=== PATIENT | female | born 1990 | race African-American/Black ===

== ENCOUNTER 2017-01-22 10:33 | Emergency (ER) | payer OTHER ==
[~2017-01-22] VITALS: Ht 157.5 cm; Wt 56.8 kg
[~2017-01-22 10:33] MED LIST: NOCURR
[2017-01-22 11:18] LABS: BASOPHILS # (AUTO) 0.02 K/uL (0.00-0.20); BASOPHILS % (AUTO) 0.3 % (0.0-2.0); EOSINOPHILS # (AUTO) 0.06 K/uL (0.00-0.70); EOSINOPHILS % (AUTO) 0.94 % (1.0-6.0); HEMATOCRIT 38.4 % (36-46); HEMOGLOBIN 12.7 g/dL (12.0-16.0); LYMPHOCYTES # (AUTO) 1.8 K/uL (1.0-4.8); LYMPHOCYTES % (AUTO) 26.3 % (22.0-44.0); MEAN CORPUSCULAR HEMOGLOBIN 31.1 pg (26.0-34.0); MEAN CORPUSCULAR VOLUME 94 fL (80-100); MONOCYTES # (AUTO) 0.5 K/uL (0.1-1.0); MONOCYTES % (AUTO) 8.1 % (2.0-9.0); NEUTROPHILS # (AUTO) 4.3 K/uL (1.8-7.7); NEUTROPHILS % (AUTO) 64.4 % (40.0-70.0); PLATELET COUNT (AUTO) 252 K/uL (150-450); RED BLOOD CELL COUNT(AUTO) 4.08 MIL/uL (4.00-5.20); RED CELL DISTRIBUTION WIDTH 12.9 % (11.5-14.5); WHITE BLOOD COUNT (AUTO) 6.6 K/uL (4.5-11.0)
[2017-01-22 11:30] LABS: ANION GAP 9 mmol/L (8-16); CARBON DIOXIDE 29 mmol/L (22-29); CHLORIDE 105 mmol/L (98-107); CREATININE 0.94 mg/dL (0.60-1.30); GLOMERULAR FILTR. RATE CALC > 60 mL/min (>60); POTASSIUM 3.6 mmol/L (3.5-5.1); SODIUM SERUM 143 mmol/L (136-145); UREA NITROGEN, BLOOD 18 mg/dL (7-18)
[2017-01-22 11:35] LABS: ALANINE AMINOTRANSFERASE 17 U/L (12-78); ALBUMIN 3.8 g/dL (3.4-5.0); ASPARTATE AMINOTRANSFERASE 18 U/L (15-37); BILIRUBIN,TOTAL 0.3 mg/dL (0.1-1.0); TOTAL PROTEIN, SERUM 7.4 g/dL (6.4-8.2)
[2017-01-22] MEDS ORDERED: LORazepam 1 MG TABLET PO ONE (11:45)
[2017-01-22] MEDS ORDERED: QUEtiapine FUMARATE 100 MG TABLET PO ONE (11:45)
[2017-01-22 12:20] VITALS: BP 119/72
== END 2017-01-22 12:25 | disposition home or self-care (01) ==
LOC: EMS 10:34 → EEVIPCON 10:34 → EMS 12:25
DX: F20.9 Schizophrenia, unspecified (principal); F41.9 Anxiety disorder, unspecified; F31.9 Bipolar disorder, unspecified; Z76.0 Encounter for issue of repeat prescription
CPT/HCPCS: 36415; 80053; 85025; 99284; G0480

== ENCOUNTER 2017-02-21 12:40 | Emergency (ER) | payer OTHER ==
[~2017-02-21] VITALS: Ht 157.5 cm; Wt 56.8 kg
[2017-02-21 12:47] VITALS: BP 138/83
[2017-02-21] MEDS ORDERED: HYDROCODONE/ACETAMINOPHEN 5-325 MG TABLET PO ONE (13:45)
== END 2017-02-21 14:50 | disposition home or self-care (01) ==
LOC: EMS 12:42
DX: S90.02XA Contusion of left ankle, initial encounter (principal); F20.9 Schizophrenia, unspecified; I10 Essential (primary) hypertension; F31.9 Bipolar disorder, unspecified; F17.210 Nicotine dependence, cigarettes, uncomplicated; Y04.0XXA Assault by unarmed brawl or fight, initial encounter; Y93.89 Activity, other specified; Y92.89 Other specified places as the place of occurrence of the external cause; Y99.9 Unspecified external cause status
CPT/HCPCS: 29515; 99284

== ENCOUNTER 2023-03-12 10:19 | Emergency (ER) | payer OTHER ==
[~2023-03-12] VITALS: Ht 157.5 cm; Wt 68.6 kg
[2023-03-12 10:24] VITALS: BP 115/75; PULSE 87; RESP 18; TEMP 98.6
[2023-03-12] MEDS ORDERED: PERM60CR19 TP (11:46)
== END 2023-03-12 11:54 | disposition home or self-care (01) ==
LOC: EMS 10:22
DX: B86 Scabies (principal); F31.9 Bipolar disorder, unspecified; F20.9 Schizophrenia, unspecified; F17.210 Nicotine dependence, cigarettes, uncomplicated
CPT/HCPCS: 99282; Z7502

== ENCOUNTER 2023-12-16 09:10 | Emergency (ER) | payer OTHER ==
[~2023-12-16] VITALS: Ht 157.5 cm; Wt 72.7 kg
[~2023-12-16 09:10] MED LIST changes: -NOCURR; +PERM60CR19 TP
[2023-12-16 09:15] VITALS: TEMP 98.7
[2023-12-16 10:31] LABS: APPEARANCE,URINE HAZY (CLEAR); BILIRUBIN,URINE NEGATIVE (NEGATIVE); COLOR,URINE YELLOW (YELLOW); GLUCOSE, URINE (UA) NEGATIVE (NEGATIVE); KETONES,URINE NEGATIVE (NEGATIVE); LEUKOCYTE ESTERASE ,URINE SMALL (NEGATIVE); NITRATE,URINE NEGATIVE (NEGATIVE); OCCULT BLOOD,URINE TRACE (NEGATIVE); PH,URINE 5.5 (5.0-8.0); PROTEIN,URINE TRACE mg/dL (NEGATIVE); SPECIFIC GRAVITIY, URINE 1.032 (1.003-1.030); UROBILINOGEN,URINE <=1.0 mg/dL (<=1.0)
[2023-12-16 10:32] LABS: HCG,QUAL URINE NEGATIVE (NEGATIVE)
[2023-12-16] MEDS ORDERED: DOXY-354 PO (11:03)
[2023-12-16 11:11] LABS: BACTERIA,URINE Few /HPF (None Seen); RBC,URINE 0-2 /HPF (0-2); SQUAMOUS EPITHELIAL CELL,UR Few /LPF (None Seen)
[2023-12-16] MEDS: FLUCONAZOLE 150 MG TABLET PO ONE (11:13)
[2023-12-16] MEDS: DOXYCYCLINE HYCLATE 100 MG TABLET PO ONE (11:13)
[2023-12-16] MEDS: MetroNIDAZOLE 500 MG TABLET PO ONE (11:13)
[2023-12-16] MEDS: LIDOCAINE/PF 1% 2 ML VIAL IM ONE (11:14)
[2023-12-16] MEDS: CefTRIAXone SODIUM 1 GM/VIAL IM ONE (11:14)
[2023-12-16 11:15] VITALS: BP 125/72; PULSE 84; RESP 18
== END 2023-12-16 11:54 | disposition home or self-care (01) ==
LOC: EMS 09:10
DX: B37.31 Acute candidiasis of vulva and vagina (principal); F31.9 Bipolar disorder, unspecified; F20.9 Schizophrenia, unspecified; F17.210 Nicotine dependence, cigarettes, uncomplicated
CPT/HCPCS: 99284; 81001; 84703; 87491; 87591; 96372; J0696; J3490

== ENCOUNTER 2024-04-19 10:05 | Emergency (ER) | payer OTHER ==
[~2024-04-19] VITALS: Ht 157.5 cm; Wt 59.1 kg
[~2024-04-19 10:05] MED LIST changes: +DOXY-354 PO; -PERM60CR19 TP
[2024-04-19 10:25] VITALS: BP 103/60; PULSE 77; RESP 16; TEMP 98.2; O2SAT 99
[2024-04-19] MEDS ORDERED: PHEN-846 PO (12:44)
[2024-04-19] MEDS ORDERED: HYDR-4808 PO (12:44)
[2024-04-19] MEDS ORDERED: MICO57CR2 TP (12:44)
== END 2024-04-19 13:02 | disposition home or self-care (01) ==
LOC: EMS 10:05
DX: B37.49 Other urogenital candidiasis (principal)
CPT/HCPCS: 99283; Z7502

== ENCOUNTER 2024-04-20 12:52 | Emergency (ER) | payer OTHER ==
[~2024-04-20] VITALS: Ht 157.5 cm; Wt 59.1 kg
[~2024-04-20 12:52] MED LIST changes: +HYDR-4808 PO; +MICO57CR2 TP; +PHEN-846 PO
[2024-04-20 13:00] VITALS: BP 133/84; PULSE 86; RESP 18; TEMP 98.9; O2SAT 96
== END 2024-04-20 13:16 | disposition home or self-care (01) ==
LOC: EMS 12:52
DX: Z76.0 Encounter for issue of repeat prescription (principal); F31.9 Bipolar disorder, unspecified; F20.9 Schizophrenia, unspecified
CPT/HCPCS: 99281; Z7502

== ENCOUNTER 2024-09-15 07:33 | Emergency (ER) | payer OTHER ==
[~2024-09-15] VITALS: Ht 157.5 cm; Wt 63.6 kg
[2024-09-15 07:36] VITALS: BP 114/97; PULSE 72; RESP 16; TEMP 98; O2SAT 100
[2024-09-15] MEDS ORDERED: FLUC150T61 PO (08:49)
[2024-09-15 08:59] LABS: APPEARANCE,URINE CLEAR (CLEAR); BILIRUBIN,URINE NEGATIVE (NEGATIVE); COLOR,URINE LIGHT YELLOW (YELLOW); GLUCOSE, URINE (UA) NEGATIVE (NEGATIVE); KETONES,URINE NEGATIVE (NEGATIVE); LEUKOCYTE ESTERASE ,URINE NEGATIVE (NEGATIVE); NITRATE,URINE NEGATIVE (NEGATIVE); OCCULT BLOOD,URINE NEGATIVE (NEGATIVE); PH,URINE 5.5 (5.0-8.0); PROTEIN,URINE NEGATIVE (NEGATIVE); SPECIFIC GRAVITIY, URINE 1.028 (1.003-1.030); UROBILINOGEN,URINE <=1.0 mg/dL (<=1.0)
[2024-09-15 09:05] LABS: HCG,QUAL URINE NEGATIVE (NEGATIVE)
== END 2024-09-15 09:35 | disposition home or self-care (01) ==
LOC: EMS 07:34
DX: B37.31 Acute candidiasis of vulva and vagina (principal); F31.9 Bipolar disorder, unspecified; F32.A Depression, unspecified; F20.9 Schizophrenia, unspecified
CPT/HCPCS: 81003; 84703; 87491; 87591; 99283